=== PATIENT | male | born 1960 | race Caucasian/White ===

== ENCOUNTER 2019-03-03 10:08 | Inpatient (IN) | payer SELFPAY ==
[~2019-03-03] VITALS: Ht 167.6 cm; Wt 93.4 kg
[2019-03-03 10:12] VITALS: BP_SYST 148
[2019-03-03] MEDS ORDERED: NACL 0.9% 1,000 ML IV ONE (10:35)
[2019-03-03] MEDS ORDERED: MORPHINE 4 MG/ML INJ. SYRINGE IVP ONE (10:45)
[2019-03-03] MEDS ORDERED: ONDANSETRON HCL 4 MG/2 ML VIAL IVP ONE ×2 (10:45→15:00)
[2019-03-03 10:59] LABS: HEMATOCRIT 46.9 % (36-54); HEMOGLOBIN 15.4 g/dL (14.0-18.0); MEAN CORPUSCULAR HEMOGLOBIN 29 pg (27-31); MEAN CORPUSCULAR VOLUME 88 fL (79.0-98.0); RED BLOOD CELL COUNT(AUTO) 5.33 MIL/uL (4.2-6.2); WHITE BLOOD COUNT (AUTO) 8.3 K/uL (4.8-10.8)
[2019-03-03 11:00] LABS: MEAN CORPUSCULAR HGB CONC 33 % (32-36)
[2019-03-03 11:04] LABS: PLATELET COUNT (AUTO) 246 K/uL (130-430); RED CELL DISTRIBUTION WIDTH 14.8 % (9.0-15.0)
[2019-03-03 11:05] LABS: BASOPHILS % (AUTO) 0.5 % (0.0-2.0); EOSINOPHILS # (AUTO) 0.1 K/uL (0.0-0.4); EOSINOPHILS % (AUTO) 1.2 % (0.0-4.0); LYMPHOCYTES # (AUTO) 1.1 K/uL (1.0-5.5); LYMPHOCYTES % (AUTO) 13.1 % (20.5-51.5); MONOCYTES # (AUTO) 0.6 K/uL (0.0-1.0); NEUTROPHILS # (AUTO) 6.5 K/uL (1.8-7.7); NEUTROPHILS % (AUTO) 78.2 % (40.0-70.0)
[2019-03-03 11:09] LABS: CALCIUM 8.9 mg/dL (8.4-11.0); CREATININE 0.83 mg/dL (0.55-1.30); POTASSIUM 3.7 mmol/L (3.5-5.1)
[2019-03-03 11:16] LABS: ALBUMIN 3.4 g/dL (3.4-4.8); INR 0.9 (0.80-1.20); PROTHROMBIN TIME 9.7 SECS (9.5-12.5); TOTAL BILIRUBIN 1.4 mg/dL (0.0-1.0)
[2019-03-03] MEDS ORDERED: MUPIROCIN 2% TOPICAL OINTMENT 22 GM NS PRN (12:30)
[2019-03-03] MEDS ORDERED: POTASSIUM CHLORIDE 20 MEQ TAB.PRT.SR PO PRN (12:30)
[2019-03-03] MEDS ORDERED: HYDROcodone/ACETAMIN 5-325 MG TAB (NORCO/ VICODIN) PO PRN (12:30)
[2019-03-03] MEDS ORDERED: DOCUSATE SODIUM 100 MG CAPSULE PO PRN (12:30)
[2019-03-03] MEDS ORDERED: MORPHINE 4 MG/ML INJ. SYRINGE IVP PRN (12:30)
[2019-03-03] MEDS ORDERED: ACETAMINOPHEN 325 MG TABLET PO PRN (12:30)
[2019-03-03] MEDS ORDERED: MAGNESIUM SULFATE 50 ML IV PRN (12:30)
[2019-03-03] MEDS ORDERED: ONDANSETRON HCL 4 MG/2 ML VIAL IVP PRN ×3 (12:30→15:45)
[2019-03-03 12:32] LABS: BILIRUBIN,URINE 1+ (NEGATIVE); BLOOD, URINE 3+ (NEGATIVE); CLARITY/URINE HAZY (CLEAR); GLUCOSE,URINE NEGATIVE (NEGATIVE); KETONES,URINE NEGATIVE (NEGATIVE); LEUKOCYTE ESTERASE ,URINE NEGATIVE (NEGATIVE); NITRITE, URINE NEGATIVE (NEGATIVE); PROTEIN URINE 3+ (NEGATIVE); UROBILINOGEN,URINE 0.2 (0.2-1.0)
[2019-03-03 12:35] LABS: COLOR,URINE YELLOW (YELLOW)
[2019-03-03 12:38] LABS: BACTERIA,URINE RARE /HPF (None Seen); RBC,URINE >100 /HPF (0-3); WBC,URINE 0-3 /HPF (0-3)
[2019-03-03 12:56] LABS: BARBITURATE, URINE NEGATIVE (NEG <=200); BENZODIAZEPINE, URINE NEGATIVE (NEG <=150); CANNABINOID, URINE NEGATIVE (NEG <=50); COCAINE, URINE NEGATIVE (NEG <=150); METHAMPHETAMINES SCREEN,URINE NEGATIVE (NEG <=500); OPIATE, URINE NEGATIVE (NEG <=100); PHENCYCLIDINE SCREEN,URINE NEGATIVE (NEG <=25); UR TRICYCLIC ANTIDEPRESSANTS NEGATIVE (NEG <=300); URINE AMPHETAMINE NEGATIVE (NEG <=500); URINE METHADONE NEGATIVE (NEG <=200); URINE OXYCODONE SCREEN NEGATIVE (NEG <=100); URINE PROPOXYPHENE SCREEN NEGATIVE (NEG <=300)
[2019-03-03 13:31] VITALS: BP_SYST 131
[2019-03-03] MEDS: cefOXitin SODIUM 2 GM in D5W 100 ML IV SCH ×2 (14:40→21:20)
[2019-03-03] MEDS: NACL 0.9% 1,000 ML IV SCH ×2 (14:50→18:59)
[2019-03-03] MEDS ORDERED: LR 1,000 ML IV.SOLN IV ONE (15:00)
[2019-03-03] MEDS ORDERED: MORPHINE SULFATE 10MG/10ML PF AMP EP ONE (15:00)
[2019-03-03] MEDS ORDERED: WATER FOR IRRIGATION,STERILE 1,000 ML IRRIG.SOLN IR ONE (15:00)
[2019-03-03] MEDS ORDERED: BUPIVACAINE /PF 0.75% 10 ML VIAL INJ ONE (15:00)
[2019-03-03] MEDS ORDERED: MIDAZOLAM HCL 5 MG/5 ML VIAL IVP ONE (15:00)
[2019-03-03] MEDS ORDERED: POLYMYXIN 500,000/BACIT.10,000 UNITS in NS IRR 1 L IR ONE (15:10)
[2019-03-03] MEDS ORDERED: KETOROLAC TROMETHAMINE 30 MG VIAL IVP PRN (15:45)
[2019-03-03] MEDS ORDERED: MORPHINE SULFATE 10MG/10ML PF AMP SP SCH (15:45)
[2019-03-03] MEDS ORDERED: DIPHENHYDRAMINE INJ 50 MG/ML VIAL IVP PRN (15:45)
[2019-03-03] MEDS ORDERED: fentaNYL CITRATE/PF 100 MCG/2 ML AMP IVP PRN ×2 (15:45)
[2019-03-03] MEDS ORDERED: NALBUPHINE HCL 10 MG/ML AMP IVP PRN (15:45)
[2019-03-03] MEDS ORDERED: KETOROLAC TROMETHAMINE 60 MG/2 ML VIAL IM PRN (15:45)
[2019-03-03] MEDS ORDERED: NALOXONE HCL 0.4 MG/ML AMP (NARCAN) IVP PRN ×2 (15:45)
[2019-03-03] MEDS ORDERED: ONDANSETRON HCL 4 MG/2 ML VIAL ONE (17:57)
[2019-03-03] MEDS ORDERED: PROMETHAZINE INJ.Non-Formulary 25 MG/ML AMP ONE (18:22)
[2019-03-03] MEDS ORDERED: PROMETHAZINE INJ.Non-Formulary 25 MG/ML AMP IVP ONE (18:30)
[2019-03-03 18:34] VITALS: BP_SYST 127
[2019-03-03 20:00] VITALS: BP_SYST 137
[2019-03-04 00:12] VITALS: BP_SYST 150
[2019-03-04] MEDS: cefOXitin SODIUM 2 GM in D5W 100 ML IV SCH ×3 (05:09→22:04)
[2019-03-04] MEDS: NACL 0.9% 1,000 ML IV SCH ×2 (05:09→22:10)
[2019-03-04 05:47] VITALS: BP_SYST 150
[2019-03-04 08:00] VITALS: BP_SYST 127
[2019-03-04] MEDS: TAMSULOSIN HCL 0.4 MG CAP PO SCH (08:26)
[2019-03-04 08:31] LABS: CALCIUM 8.5 mg/dL (8.4-11.0); CREATININE 0.88 mg/dL (0.55-1.30); POTASSIUM 3.5 mmol/L (3.5-5.1)
[2019-03-04 08:35] LABS: PHOSPHORUS 3.3 mg/dL (2.7-4.5)
[2019-03-04 08:50] LABS: BASOPHILS % (AUTO) 0.2 % (0.0-2.0); EOSINOPHILS % (AUTO) 0.3 % (0.0-4.0); HEMOGLOBIN 14.1 g/dL (14.0-18.0); LYMPHOCYTES # (AUTO) 0.9 K/uL (1.0-5.5); MEAN CORPUSCULAR HEMOGLOBIN 29 pg (27-31); MEAN CORPUSCULAR HGB CONC 33 % (32-36); MEAN CORPUSCULAR VOLUME 88 fL (79.0-98.0); MONOCYTES # (AUTO) 0.8 K/uL (0.0-1.0); MONOCYTES % (AUTO) 9.4 % (1.7-9.3); NEUTROPHILS # (AUTO) 6.8 K/uL (1.8-7.7); NEUTROPHILS % (AUTO) 80.1 % (40.0-70.0); PLATELET COUNT (AUTO) 223 K/uL (130-430); RED BLOOD CELL COUNT(AUTO) 4.87 MIL/uL (4.2-6.2); WHITE BLOOD COUNT (AUTO) 8.5 K/uL (4.8-10.8)
[2019-03-04] MEDS ORDERED: HEPARIN SODIUM,PORCINE 5000 UNITS/ML VIAL SUBCUT SCH (09:00)
[2019-03-04 11:38] VITALS: BP_SYST 127
[2019-03-04 15:18] VITALS: BP_SYST 125
[2019-03-04 20:00] VITALS: BP_SYST 149
[2019-03-05 00:34] VITALS: BP_SYST 124
[2019-03-05] MEDS: cefOXitin SODIUM 2 GM in D5W 100 ML IV SCH (05:06)
[2019-03-05 07:02] LABS: CALCIUM 8.8 mg/dL (8.4-11.0); CREATININE 1.16 mg/dL (0.55-1.30); POTASSIUM 3.3 mmol/L (3.5-5.1)
[2019-03-05 08:00] VITALS: BP_SYST 128
[2019-03-05] MEDS: TAMSULOSIN HCL 0.4 MG CAP PO SCH (08:13)
[2019-03-05 08:53] LABS: RED BLOOD CELL COUNT(AUTO) 4.89 MIL/uL (4.2-6.2); WHITE BLOOD COUNT (AUTO) 11.4 K/uL (4.8-10.8)
[2019-03-05 08:54] LABS: HEMATOCRIT 42.8 % (36-54); HEMOGLOBIN 14.1 g/dL (14.0-18.0); MEAN CORPUSCULAR HEMOGLOBIN 29 pg (27-31); MEAN CORPUSCULAR HGB CONC 33 % (32-36); MEAN CORPUSCULAR VOLUME 88 fL (79.0-98.0); PLATELET COUNT (AUTO) 212 K/uL (130-430); RED CELL DISTRIBUTION WIDTH 14.9 % (9.0-15.0)
[2019-03-05 08:57] LABS: BASOPHILS % (AUTO) 0.3 % (0.0-2.0); EOSINOPHILS # (AUTO) 0.1 K/uL (0.0-0.4); EOSINOPHILS % (AUTO) 0.8 % (0.0-4.0); LYMPHOCYTES # (AUTO) 0.9 K/uL (1.0-5.5); LYMPHOCYTES % (AUTO) 7.6 % (20.5-51.5); MONOCYTES # (AUTO) 1.1 K/uL (0.0-1.0); MONOCYTES % (AUTO) 9.4 % (1.7-9.3); NEUTROPHILS # (AUTO) 9.3 K/uL (1.8-7.7); NEUTROPHILS % (AUTO) 81.9 % (40.0-70.0)
[2019-03-05 11:30] VITALS: BP_SYST 128
[2019-03-05] MEDS ORDERED: TAMS-11 PO (11:33)
[2019-03-05] MEDS ORDERED: HYDR-4272 PO (11:34)
[2019-03-05 12:28] VITALS: BP_SYST 132
== END 2019-03-05 13:00 | disposition home or self-care (01) | DRG 352 ==
LOC: SED 10:08 → SMU 12:19
PROVIDERS: ADMIT Family Medicine; ATTEND Family Medicine
PROC: 0YU50JZ Supplement Right Inguinal Region with Synthetic Substitute, Open Approach (ICD-10-PCS; principal; 2019-03-03 14:45)
DX: K40.30 Unilateral inguinal hernia, with obstruction, without gangrene, not specified as recurrent (principal); D17.79 Benign lipomatous neoplasm of other sites; E66.9 Obesity, unspecified; R33.8 Other retention of urine; N40.1 Benign prostatic hyperplasia with lower urinary tract symptoms; Z87.891 Personal history of nicotine dependence; Z68.33 Body mass index [BMI] 33.0-33.9, adult
CPT/HCPCS: 36415; 71045; 80048; 80053; 80307; 81000-TC; 82150-TC; 82550-TC; 83036; 83605; 83690-TC; 83735-TC; 84100-TC; 84484; 85025; 85610-TC; 85730-TC; 87040-TC; 87081; 88302; 93005; 94010; 94760; 96360; 99285; C1781; J0694; J1885; J2250; J2270; J2274; J2405; J2550; J3490; J7030; J7060; J7120

== ENCOUNTER 2021-09-08 08:21 | Emergency (ER) | payer MEDICAID ==
[~2021-09-08] VITALS: Ht 167.6 cm; Wt 86.2 kg
[~2021-09-08 08:21] MED LIST: HYDR-4272 PO; TAMS-11 PO
[2021-09-08 08:39] VITALS: BP_SYST 142
[2021-09-08 09:36] VITALS: BP_SYST 142
== END 2021-09-08 09:36 | disposition home or self-care (01) ==
LOC: SED 08:21
DX: T83.098A Other mechanical complication of other urinary catheter, initial encounter (principal); Z79.899 Other long term (current) drug therapy
CPT/HCPCS: 99281

== ENCOUNTER 2021-09-22 15:57 | Emergency (ER) | payer MEDICAID ==
[~2021-09-22] VITALS: Ht 167.6 cm; Wt 81.6 kg
[2021-09-22 16:36] VITALS: BP_SYST 119
--- NOTE | 2021-09-22 16:40 | NUR ---
Patient triaged and placed in waiting room. VSS and patient appears in no acute distress at this time. Accompanied by self, awaiting available bed, and MD notified of need for MSE.
--- NOTE | 2021-09-22 17:34 | NUR ---
Patient to ER bed 04 to gown for evaluation. Side rails up. Report given to JULIANO Tiwari
--- NOTE | 2021-09-22 17:45 | NUR ---
PT CAME IN FROM HOME C/O TESTICULAR PAIN X 2 DAYS, REPORTS HEMATURIA THIS AM. PT HAS HX OF BPH. MENON CATH IN PLACE DRAINING WELL. PT IS AMBULATORY, AAOX4, V/S STABLE
--- NOTE | 2021-09-22 18:40 | NUR ---
ER DR CAMEJO AT THE BEDSIDE EXAMINING PT
[2021-09-22] MEDS ORDERED: levoFLOXacin 500 MG TABLET PO ONE (19:00)
--- NOTE | 2021-09-22 19:11 | NUR ---
# 20 gauge angiocath placed to RAC. Use of asceptic technique. Opsite placed over site. Blood return noted. Flushed with 10 cc of normal saline. No evidence of infiltration noted. Patient tolerated well.
--- NOTE | 2021-09-22 19:15 | NUR ---
REPORT GIVEN TO JULIANO ELDER FOR CONTINUING CARE
--- NOTE | 2021-09-22 19:19 | NUR ---
LAB AT BEDSIDE FOR BLOOD DRAW.
[2021-09-22 19:36] LABS: BASOPHILS # (AUTO) 0.1 K/uL (0.0-0.2); BASOPHILS % (AUTO) 0.7 % (0.0-2.0); EOSINOPHILS # (AUTO) 0.3 K/uL (0.0-0.4); EOSINOPHILS % (AUTO) 1.8 % (0.0-4.0); HEMATOCRIT 44.5 % (36-54); HEMOGLOBIN 15.1 g/dL (14.0-18.0); LYMPHOCYTES # (AUTO) 1.3 K/uL (1.0-5.5); LYMPHOCYTES % (AUTO) 8.7 % (20.5-51.5); MEAN CORPUSCULAR HEMOGLOBIN 30 pg (27-31); MEAN CORPUSCULAR HGB CONC 34 % (32-36); MEAN CORPUSCULAR VOLUME 89 fL (79.0-98.0); MONOCYTES # (AUTO) 1.4 K/uL (0.0-1.0); MONOCYTES % (AUTO) 9.2 % (1.7-9.3); NEUTROPHILS # (AUTO) 11.9 K/uL (1.8-7.7); NEUTROPHILS % (AUTO) 79.6 % (40.0-70.0); PLATELET COUNT (AUTO) 345 K/uL (130-430); RED BLOOD CELL COUNT(AUTO) 5.02 MIL/uL (4.2-6.2); RED CELL DISTRIBUTION WIDTH 14.2 % (9.0-15.0); WHITE BLOOD COUNT (AUTO) 14.9 K/uL (4.8-10.8)
[2021-09-22 19:42] LABS: CREATININE 1.07 mg/dL (0.55-1.30); POTASSIUM 4.5 mmol/L (3.5-5.1)
[2021-09-22 19:47] LABS: ALBUMIN 3.3 g/dL (3.4-4.8); TOTAL BILIRUBIN 1.4 mg/dL (0.0-1.0)
--- NOTE | 2021-09-22 20:03 | NUR ---
PT TAKEN TO CT SCAN WITH CONTRAST VIA AMBULATORY.
--- NOTE | 2021-09-22 20:15 | NUR ---
PT BACK FROM CT SCAN VIA AMBULATORY IN STABLE CONDITION.
--- NOTE | 2021-09-22 21:17 | NUR ---
Patient resting quietly. No acute distress noted. Vital signs within normal range. AWAITING FOR CT RESULTS.
[2021-09-22] MEDS ORDERED: LEVO750T45 PO (21:47)
[2021-09-22 22:00] VITALS: BP_SYST 119
--- NOTE | 2021-09-22 22:00 | NUR ---
Patient given written and verbal discharge instructions and verbalizes understanding. DR. NELL SOSA MD discussed with patient the results and treatment provided. Patient in stable condition. ID arm band removed. IV catheter removed intact and dressing applied, no active bleeding. Rx of LEVAQUIN given. Patient educated on pain management and to follow up with PMD. Pain Scale 0/10. Opportunity for questions provided and answered. Medication side effect fact sheet provided.
== END 2021-09-22 22:00 | disposition home or self-care (01) ==
LOC: SED 15:57
DX: N45.1 Epididymitis (principal); N28.1 Cyst of kidney, acquired; R31.9 Hematuria, unspecified; Z79.899 Other long term (current) drug therapy
CPT/HCPCS: 36415; 74177; 76376; 76870; 80053; 85025; 99285; Q9967

== ENCOUNTER 2021-10-09 04:38 | Emergency (ER) | payer MEDICAID ==
[~2021-10-09] VITALS: Ht 167.6 cm; Wt 81.6 kg
[~2021-10-09 04:38] MED LIST changes: +LEVO750T45 PO
[2021-10-09 05:30] VITALS: BP_SYST 130
--- NOTE | 2021-10-09 05:34 | NUR ---
Patient to ER bed 7 to gown for evaluation. Side rails up.
--- NOTE | 2021-10-09 05:38 | NUR ---
Patient BIB by family from home. C/O urinary problem x today. Patient reported, had rm's catheter and clot, no urine since 2200 PM last night, A/O,X4, lower abdominal pain, pain rate 4/10.
--- NOTE | 2021-10-09 06:05 | NUR ---
# 16 FR Rm catheter with use of sterile technique. Immediate return of 600 cc red/yellow urine noted. Bedside drainage bag placed below level of bladder. Urine sample collected and sent to lab. Pt tolerated procedure well. Patient arrived with rm in place, changed due to standard of practice prior to admission. Patient unable to toilet self.
--- NOTE | 2021-10-09 06:11 | NUR ---
ER at bedside examining patient.
[2021-10-09 06:34] VITALS: BP_SYST 130
--- NOTE | 2021-10-09 06:34 | NUR ---
Patient given written and verbal discharge instructions and verbalizes understanding. ER MD discussed with patient the results and treatment provided. Patient in stable condition. ID arm band removed. No Rx given. Patient educated on pain management and to follow up with PMD. Pain Scale 0/10. Opportunity for questions provided and answered.
== END 2021-10-09 06:34 | disposition home or self-care (01) ==
LOC: SED 04:38
DX: T83.091A Other mechanical complication of indwelling urethral catheter, initial encounter (principal); R33.9 Retention of urine, unspecified; Z79.899 Other long term (current) drug therapy
CPT/HCPCS: 81002; 87086; 99284